=== PATIENT | female | born 1970 | race Caucasian/White ===

== ENCOUNTER 2024-03-25 18:57 | Emergency (ER) | payer SELFPAY ==
[2024-03-25 19:06] VITALS: BP 184/101
[2024-03-25 19:40] LABS: % Basophils 1.2 % (0-2); % Eosinophils 0.6 % (0-6); % Immature Granulocytes 0.2 % (0-0.5); % Lymphocytes 43.3 % (20.5-51.1); % Monocytes 10.7 % (1.7-9.3); Absolute Basophils 0.1 10^3/uL (0-0.2); Absolute Lymphocytes 2.2 10^3/uL (1.2-3.4); Absolute Monocytes 0.6 10^3/uL (0.1-0.6); Absolute Neutrophils 2.3 10^3/uL (1.4-6.5); Hematocrit 41.4 % (37.0-47.0); Hemoglobin 14.7 g/dL (12.0-16.0); Mean Corp Hgb Conc. 35.5 g/dL (33.0-37.0); Mean Corpuscular Hgb 33.2 pg (27.0-31.0); Mean Corpuscular Volume 93.5 fL (81.0-99.0); Nucleated Red Blood Cells % 0 %; Red Blood Cell Count 4.43 10^6/uL (4.20-5.40); Red Cell Dist. Width 21.1 % (11.5-14.5); White Blood Cell Count 5.2 10^3/uL (4.8-10.8)
[2024-03-25 19:56] VITALS: BP 148/115
[2024-03-25 19:59] LABS: ALT (SGPT) 59 U/L (0-35); AST (SGOT) 102 U/L (14-36); Albumin 4.4 g/dl (3.5-5.0); Alkaline Phosphatase 82 U/L (38-126); Blood Urea Nitrogen 3 mg/dl (7-17); Calcium 8.9 mg/dl (8.4-10.2); Carbon Dioxide 28 mmol/L (22-30); Chloride 98 mmol/L (98-107); Glucose 227 mg/dl (70-99); Potassium 3.4 mmol/L (3.5-5.1); Sodium 140 mmol/L (135-145); Total Bilirubin 0.5 mg/dl (0.2-1.3); Total Protein 6.8 g/dl (6.3-8.2); eGFR > 60.00
[2024-03-25 20:00] VITALS: BP 125/81
[2024-03-25 20:08] LABS: Alcohol 333 mg/dl
[2024-03-25 20:11] LABS: Platelet Count 86 10^3/uL (130-400)
--- NOTE | 2024-03-25 21:22 | ED.GENMED ---
History of Present Illness
General
Chief Complaint: Alcohol Problem
Source: patient
Exam Limitations: other (Alcohol intoxication)
Time Seen by Provider: 03/25/24 20:30
History of Present Illness
History of Present Illness:
Patient apparently dropped off by her for alcohol detoxification. Also complaining of ear pain. Daily vomiting times months if not years. No other specific medical complaints.
Past History
Past History
ED Past Medical History: HTN and Other (Chronic alcohol use. Seizure disorder)
ED Past Surgical History: and Orthopedic
Social History
Alcohol: Chronic alcoholic
Personal:
Living: with family
Review of Systems
Review of Systems
All Other Systems: Not applicable
Respiratory: Reports no symptoms
Cardiac: Reports no symptoms
ABD/GI: Denies abdominal pain
Phy Exam
Physical Exam
Physical Exam:
GENERAL: Alert and oriented. Mild to moderately intoxicated. However fully awake and alert ambulating in the room. At times screaming at somebody on the phone. Normocephalic atraumatic
EYE: Orbits normal.
NECK: Supple, no significant adenopathy.
ENT: Pharynx with diffuse erythema. TMs clear
CARDIAC: Regular rate and rhythm without any obvious murmurs.
LUNGS: Clear breath sounds,normal
ABDOMEN: Soft, without focal tenderness or distention
NEUROLOGICAL: Alert and oriented , grossly non-focal
SKIN: Warm and dry, no rash or lesion, ecchymosis to the arm
MUSCULOSKELETAL: No edema,no deformity.Good color
PSYCH: Anxious. Anger at times. However fully awake and alert
Scores
Withdrawal Assessment of Alcohol
Withdrawal Assessment Completed?: Not applicable
Course
Orders/Labs/Results
Orders:
Orders
03/25/24 19:13
EKG [Electrocardiogram (*1)] Urgent
Reason for Study: Tachycardia
EKG- Treatment ONCE
03/25/24 19:28
Alcohol Urgent
Complete Blood Count/With Diff Urgent
Comprehensive Metabolic Panel Urgent
03/25/24 21:21
0.9% Sodium Chloride 1000 ml [Nss] 1,000 ml Mvi, Adult [Multivitamin] 10 ml Thiamine Injection 100 mg IV Wide Open mls/hr
Amoxicillin [Amoxil] 500 mg PO NOW STA
Abnormal Lab Results
03/25/24
19:28
MCH 33.2 H pg
(27.0-31.0)
RDW 21.1 H %
(11.5-14.5)
Plt Count 86 L 10^3/uL
(130-400)
Monocytes % 10.7 H %
(1.7-9.3)
Potassium 3.4 L mmol/L
(3.5-5.1)
BUN 3 L mg/dl
(7-17)
Glucose 227 H mg/dl
(70-99)
AST 102 H U/L
(14-36)
ALT 59 H U/L
(0-35)
03/25/24 19:28
03/25/24 19:28
Vital Signs
Initial and Last Documented VS:
Initial Vital Signs
Temp Pulse Resp BP Pulse Ox
98.1 F 133 16 184/101 97
03/25/24 19:06 03/25/24 19:06 03/25/24 19:06 03/25/24 19:06 03/25/24 19:06
Last Documented Vital Signs
Temp Pulse Resp BP Pulse Ox
98.1 F 105 26 125/81 93
03/25/24 19:06 03/25/24 20:15 03/25/24 20:15 03/25/24 20:00 03/25/24 20:15
MDM/Problems Addressed
Differential Diagnosis Includes:
Patient clinically intoxicated but awake and alert. Not suicidal. Nothing to support a 302. apparently cannot come back to get her. No indication for hospitalization. She refuses help for her alcohol. She will be escorted by police
back to her who take responsible care for her.
*Critical Care Note
Total Time (30-74mins, 75-104mins- exclusive of procedures): Not Applicable
Update Note
Update Note:
2119... Patient has been a very difficult patient. Pacing the room. Yelling at staff. I explained to her why we need to watch her given her intoxication. She is not suicidal. No indication for psychiatric committal. She is requesting a banana
bag. Medically I do not feel that is absolutely necessary but for her peace of mind we will give her a liter of fluids. She is stable to leave with her whenever he shows up. She refused help for her alcohol issue.
2134.... Call police were called because patient was videotaping staff. Patient is currently talking to the police. Medically there is no reason to keep her in the hospital. She had requested a banana bag although medically she is not vomiting
she is clinically not dehydrated she is stable. I was only ordering this at her request. But given her difficulty with staff and cooperation and given that the police are willing to take her home to her who will be responsible for her, I
see no reason to have a banana bag at this time.
ED Attending Note
-
Portions of this chart may have been created with voice recognition software.� Occasional wrong word or��sound alike� substitutions may have occurred due to the inherent limitations of voice recognition software.
Discharge Plan
Departure
Patient Disposition: Home (Routine Discharge)
Date of Disposition: 03/25/24
Time of Disposition: 21:34
Patient with high blood pressure during this ER visit?: Yes
Discharge Problem:
Acute alcohol intoxication, Chronic alcohol abuse, Pharyngitis, Mild hyperglycemia, Mild thrombocytopenia, Pharyngitis
Instructions: Alcohol Use Disorder (DC), BLOOD PRESSURE
Prescriptions:
New
amoxicillin 500 mg capsule
500 mg PO TID 10 Days Qty: 30 0RF
Activity Restrictions/Additional Instructions:
We had recommended you getting help for your alcohol issues. If you change your mind you can return and talk to the [facility] team.
Antibiotics as directed
You should follow-up your blood sugar and your labs with your primary physician.
Interventions
Interventions:
*Risk Screen - Suicide Last Done: 03/25/24 19:12
ED- Fall Risk Assessment Last Done: 03/25/24 19:59
*Nursing Disposition Last Done: 03/25/24 21:43
ED- Neurological Assessment Last Done: 03/25/24 19:59
ED-Psychological Assessment Last Done: 03/25/24 19:59
Discharge Date and Time
Discharge Date/Time: 03/25/24 22:00
Print Language: ROMANIAN
[2024-03-25] MEDS: AMOXIL 500 MG PO (21:40)
== END 2024-03-25 22:00 | disposition home or self-care (01) ==
LOC: EMR 18:57
PROVIDERS: EMERGENCY PHYSICIAN Emergency Medicine
DX: F10.129 Alcohol abuse with intoxication, unspecified (principal); D69.6 Thrombocytopenia, unspecified; J02.9 Acute pharyngitis, unspecified; R73.9 Hyperglycemia, unspecified; H92.09 Otalgia, unspecified ear; I10 Essential (primary) hypertension; G40.909 Epilepsy, unspecified, not intractable, without status epilepticus
CPT/HCPCS: 99283; 80053; 82077; 85025; 93005